=== PATIENT | female | born 1950 | race Caucasian/White ===

== ENCOUNTER 2020-10-26 18:22 | Emergency (ER) | payer OTHER ==
[~2020-10-26] VITALS: Ht 160 cm; Wt 84.4 kg
[~2020-10-26 18:22] MED LIST: ACETAMINOPHEN-1 EAC1 PO; CRESTOR10 MG; FLEXERIL PO; GARAMYCIN3.5 GM OP; K-DUR10 ME1; KEFLEX500 MG PO; LASIX 20 MG TAB20 MG; NORCO 5-325 TA1 EACH PO; PRIMIDONE50 MG PO; SUDAFED30 MG; ZOLOFT100 MG PO
[2020-10-26] MEDS ORDERED: PRAVASTATIN SOD40 MG PO (18:52)
[2020-10-26] MEDS ORDERED: ASA81BEC PO (18:53)
[2020-10-26] MEDS ORDERED: SUDAFED PO (18:53)
[2020-10-26] MEDS ORDERED: EYE DROPS (18:54)
[2020-10-26] MEDS ORDERED: PREDNISONE (18:54)
[2020-10-26] MEDS ORDERED: BENADRYL25 MG PO (18:54)
[2020-10-26] MEDS ORDERED: TIZANIDINE HCL 22 M1 PO (19:51)
[2020-10-26] MEDS ORDERED: HYDROCODON-ACE1 EAC7 PO (19:51)
[2020-10-26 20:56] VITALS: BP 138/72
== END 2020-10-26 20:57 | disposition home or self-care (01) ==
LOC: ER 18:22
DX: S39.012A Strain of muscle, fascia and tendon of lower back, initial encounter (principal); M25.551 Pain in right hip; J44.9 Chronic obstructive pulmonary disease, unspecified; Z79.899 Other long term (current) drug therapy; X50.1XXA Overexertion from prolonged static or awkward postures, initial encounter; Y93.89 Activity, other specified; Y92.89 Other specified places as the place of occurrence of the external cause; Y99.9 Unspecified external cause status